=== PATIENT | female | born 1960 | race Caucasian/White ===

== ENCOUNTER → 2020-11-02 11:37 | Outpatient (CLI) | payer OTHER, SELFPAY ==
--- NOTE | ~2020-11-02 | XR_ITS ---
EXAMINATION: XR lumbar spine 6V w bending EXAM DATE: 11/02/2020 12:10 INDICATION: Low back pain. TECHNIQUE: Lumber spine frontal, lateral, bilateral oblique projections. Coned down frontal and lat eral L5-S1 lumbar projections for interpretation. Additional lateral flexion and lateral extension p rojections obtained. There are no prior studies for comparison. FINDINGS: Spine stimulator pack and leads. There is mild to moderate lumbar disc disease. Moderate lo wer lumbar facet arthropathy. There is 2 mm retrolisthesis L3 on L4 on the lateral projections. The v ertebral bodies are otherwise aligned. Vertebral body heights relatively well-maintained. There are cholecystectomy clips. Mild lumbar dextroscoliosis. IMPRESSION: 1. Mild to moderate lumbar disc disease. 2. Moderate lower lumbar facet arthropathy. Reviewed, dictated and finalized at location A. [facility] [employer] LAW CLERK
== END ==
PROVIDERS: PCP Family Medicine; Visit Provider Family Medicine
DX: M51.36 Other intervertebral disc degeneration, lumbar region (principal)
CPT/HCPCS: 72114

== ENCOUNTER → 2021-10-28 12:23 | Outpatient (CLI) | payer OTHER, SELFPAY ==
--- NOTE | ~2021-10-28 | CT_ITS ---
EXAMINATION: CT cervical spine wo con DATE: 10/28/2021 13:05 INDICATION: Cervical radiculopathy. TECHNIQUE: Computed tomography (CT) of the cervical spine was performed without intravenous contrast. Automated exposure control and iterative reconstruction technique were employed. The dose-length pro duct was 191.02 mGy-cm. COMPARISON: None FINDINGS: There is mild emphysema. Anterior and posterior arches of C1 are chronically ununited. Ther e is 6 degrees dextrocurvature of cervical spine. There is 2 mm retrolisthesis of C3 on C4 and C4 on C5. Vertebral body heights are normal. There is severely decreased disc height from C3-C4 through C6- C7 with endplate remodeling. The following disc levels are specifically discussed: C2-C3: There is mild bilateral uncovertebral joint osteoarthritis. There is moderate right and severe left facet joint osteoarthritis. There is mild left neural foraminal stenosis. There is no central c anal stenosis. C3-C4: There is severe bilateral uncovertebral joint osteoarthritis. There is severe bilateral facet joint osteoarthritis. There is mild right and moderate left neural foraminal stenosis. There is mild central canal stenosis. C4-C5: There is severe bilateral uncovertebral joint osteoarthritis. There is moderate bilateral face t joint osteoarthritis. There is mild bilateral neural foraminal stenosis. There is mild central yanci l stenosis. C5-C6: There is severe bilateral uncovertebral joint osteoarthritis. There is mild right and severe l eft facet joint osteoarthritis. There is mild bilateral neural foraminal stenosis. There is mild cent ral canal stenosis. C6-C7: There is severe bilateral uncovertebral joint osteoarthritis. There is moderate bilateral face t joint osteoarthritis. There is mild bilateral neural foraminal stenosis. There is mild central yanci l stenosis. C7-T1: There is no uncovertebral joint osteoarthritis. There is moderate and mild left facet joint os teoarthritis. There is no neural foraminal stenosis. There is no central canal stenosis. IMPRESSION: 1. Severe cervical spondylosis. Reviewed, dictated and finalized at location B. REFRIGERATING ENGINEER
== END ==
PROVIDERS: PCP Family Medicine; Visit Provider Anesthesiology
DX: M47.22 Other spondylosis with radiculopathy, cervical region (principal)
CPT/HCPCS: 72125

== ENCOUNTER 2021-11-30 08:44 | Outpatient (CLI) | payer OTHER, SELFPAY ==
--- NOTE | 2021-11-30 11:00 | NEURO_ITS ---
Impression: # Complains of right hand pain, inability to extend finger and muscle atrophy. # Mild bilateral Carpal Tunnel Syndrome. # Non-localizing right ulnar neuropathy. # Neurogenic changes noted in multiple muscles; raises the possibility of higher involvement. Nerve Conduction Studies Anti Sensory Summary Table Stim Site NR Peak (ms) P-T Amp (?V) Site1 Site2 Delta-P (ms) Dist (cm) Deacon (m/s) Left Median Anti Sensory (2-3nd Digit) Wrist 3.1 28.0 Wrist 2-3nd Digit 3.1 14.0 45 Wrist 3.2 23.9 Wrist 2-3nd Digit 3.1 14.0 45 Right Median Anti Sensory (2-3nd Digit) Wrist 3.1 90.6 Wrist 2-3nd Digit 3.1 14.0 45 Wrist 5.5 54.5 Wrist 2-3nd Digit 3.1 14.0 45 Left Radial Anti Sensory (Base 1st Digit) Wrist 1.8 29.8 Wrist Base 1st Digit 1.8 0.0 Right Radial Anti Sensory (Base 1st Digit) Wrist 2.0 35.0 Wrist Base 1st Digit 2.0 0.0 Left Ulnar Anti Sensory (5th Digit) Wrist 2.5 62.1 Wrist 5th Digit 2.5 14.0 56 Right Ulnar Anti Sensory (5th Digit) Wrist 2.3 61.7 Wrist 5th Digit 2.3 14.0 61 Motor Summary Table Stim Site NR Onset (ms) O-P Amp (mV) Site1 Site2 Delta-0 (ms) Dist (cm) Deacon (m/s) Left Median Motor (Abd Poll Brev) Wrist 3.9 5.0 Elbow Wrist 4.9 26.0 53 Elbow 8.8 3.7 Right Median Motor (Abd Poll Brev) Wrist 3.4 10.2 Elbow Wrist 6.2 27.0 44 Elbow 9.6 8.8 Left Ulnar Motor (Abd Dig Minimi) Wrist 2.4 3.5 A Elbow Wrist 5.3 28.0 53 A Elbow 7.7 3.7 Right Ulnar Motor (Abd Dig Minimi) Wrist 2.0 7.8 A Elbow Wrist 5.7 28.0 49 A Elbow 7.7 6.9 B Elbow Wrist 3.9 19.0 49 B Elbow 5.9 7.0 F Wave Studies NR F-Lat (ms) L-R F-Lat (ms) Left Median (Mrkrs) (Abd Poll Brev) 27.97 0.16 Right Median (Mrkrs) (Abd Poll Brev) 27.81 0.16 Left Ulnar (Mrkrs) (Abd Dig Min) 28.71 1.06 Right Ulnar (Mrkrs) (Abd Dig Min) 27.66 1.06 EMG Side Muscle Nerve Root Ins Act Fibs Amp Dur Recrt Comment Right 1stDorInt Ulnar C8-T1 Nml Nml Nml >12ms Reduced Right Ext Indicis Radial (Post Int) C7-8 Nml Nml Nml Nml Nml Right Ext Digitorum Radial (Post Int) C7-8 Nml Nml Nml Nml Nml Right BrachioRad Radial C5-6 Nml Nml Nml Nml Nml Right PronatorTeres Median C6-7 Nml Nml Nml >12ms Reduced Right Abd Poll Brev Median C8-T1 Nml Nml Nml >12ms Reduced Left 1stDorInt Ulnar C8-T1 Nml Nml Nml Nml Nml Left Ext Indicis Radial (Post Int) C7-8 Nml Nml Nml Nml Nml Left Ext Digitorum Radial (Post Int) C7-8 Nml Nml Nml Nml Nml Left BrachioRad Radial C5-6 Nml Nml Nml Nml Nml Left PronatorTeres Median C6-7 Nml Nml Nml Nml Nml Left Abd Poll Brev Median C8-T1 Nml Nml Nml Nml Nml Right ABD Dig Min Ulnar C8-T1 Nml Nml Nml >12ms Reduced Right Abd Poll Long Radial (Post Int) C7-8 Nml Nml Nml Nml Nml Left ABD Dig Min Ulnar C8-T1 Nml Nml Nml Nml Nml Left Abd Poll Long Radial (Post Int) C7-8 Nml Nml Nml Nml Nml MTDD
== END 2021-11-30 08:45 | disposition home or self-care (01) ==
LOC: ANHNEURO 08:46
PROVIDERS: PCP Family Medicine; Visit Provider Physician Assistant Medical
DX: R20.2 Paresthesia of skin (principal); G56.03 Carpal tunnel syndrome, bilateral upper limbs; G56.21 Lesion of ulnar nerve, right upper limb
CPT/HCPCS: 95886; 95911

== ENCOUNTER 2025-10-28 11:02 | Outpatient (CLI) | payer MEDICARE, SELFPAY ==
--- NOTE | ~2025-10-28 | CT_ITS ---
EXAMINATION:CT lung screening DATE: 10/28/2025 11:17 INDICATION: Personal history of nicotine dependence. TECHNIQUE: Computed tomography (CT) of the chest was performed without intravenous contrast. Automated exposure control and iterative reconstruction technique were employed. The dose-length product (DLP) was 69.31 mGy-cm. COMPARISON: None. FINDINGS: There is mild emphysema. There is mild scarring in paraspinal right lower lobe. There is mild atelectasis bilaterally. No pleural effusion. The heart size is normal. There are coronary artery calcifications. No pericardial effusion. There are changes of cholecystectomy. Epidural electrodes are noted. There is mild thoracic spondylosis. There is mild chronic anterior wedging of T11 and T12 vertebral bodies. IMPRESSION: 1. Lung-RADS category 2: Benign appearance or behavior. Continue annual screening with noncontrast low-dose chest CT in 12 months. Reviewed, dictated and finalized at location E. TER FORMER IMPRESSION: 1. Lung-RADS category 2: Benign appearance or behavior. Continue annual screeni ng with noncontrast low-dose chest CT in 12 months.
== END 2025-10-28 11:03 | disposition home or self-care (01) ==
LOC: MICIMG 11:03
PROVIDERS: PCP Family Medicine; Visit Provider Physician Assistant Medical
DX: Z12.2 Encounter for screening for malignant neoplasm of respiratory organs (principal); Z87.891 Personal history of nicotine dependence
CPT/HCPCS: 71271